=== PATIENT | female | born 2000 | race Caucasian/White ===

== ENCOUNTER 2019-09-25 03:27 | Emergency (ER) | payer BC ==
[2019-09-25 04:46] LABS: #Monocytes 0.4 thou/uL (0.11-0.59); #Neutrophils 10.1 thou/uL (1.40-6.50); %Basophils 0.1 % (0.0-1.0); %Eosinophils 0.1 % (0.0-10.0); %Lymphocytes 8.8 % (21.0-51.0); %Monocytes 3.7 % (0.0-10.0); %Neutrophils 87.3 % (42.0-75.0); Hemoglobin 14.3 g/dL (12.0-16.0); Mean Corpuscular HGB CONC 32.7 g/dL (32.0-36.0); Mean Corpuscular Hemoglobin 27.4 pg (27.0-31.0); Mean Corpuscular Volume 83.8 fL (78.0-98.0); Mean Platelet Volume 6.8 fL (7.4-10.4); Platelet Count 277 thou/uL (130-400); RBC Distribution Width 12.7 % (11.5-14.5); Red Blood Cell (RBC) Count 5.23 mill/uL (4.20-5.40); White Blood Cell (WBC) Count 11.5 thou/uL (4.8-10.8)
[2019-09-25 05:07] LABS: ALT (SGPT) 22 U/L (8-55); AST (SGOT) 11 U/L (5-34); Albumin 4.4 g/dL (3.5-5.0); Alkaline Phosphatase 94 U/L (40-110); Anion Gap 14 mmol/L (10-20); BUN (Urea Nitrogen) 11 mg/dL (7.0-18.7); Bilirubin, Total 0.3 mg/dL (0.2-1.2); Calc. Creatinine Clearance 0 mL/min (70-130); Calcium 10.1 mg/dL (7.8-10.44); Carbon Dioxide 26 mmol/L (22-29); Chloride 99 mmol/L (98-107); Estimated GFR-MDRD Greater than 90; Glucose 204 mg/dL (70-105); Protein, Total 8.4 g/dL (6.0-8.3); Sodium 135 mmol/L (136-145)
[2019-09-25 05:33] LABS: BHCG - Serum Negative (NEGATIVE); Pregs Control Background? CLEAR/WHITE (CLR/WHITE); Pregs Control Bar Appear? YES (CONTROL BAR)
--- NOTE | 2019-10-08 16:42 | EKG ---
Test Reason : HYPERTENSION Blood Pressure : / mmHG Vent. Rate : 086 BPM Atrial Rate : 086 BPM P-R Int : 132 ms QRS Dur : 086 ms QT Int : 352 ms P-R-T Axes : 040 034 003 degrees QTc Int : 421 ms Normal sinus rhythm Normal ECG Confirmed by SARA CLARK DO ([id number]), editorial writer ADONAY HULL ([id number]) on 10/08/2019 4:41:33 PM Referred By: Confirmed By:SARA CLARK DO
== END 2019-09-25 05:44 | disposition home or self-care (01) ==
LOC: ERS 03:27
DX: I10 Essential (primary) hypertension (principal); E78.5 Hyperlipidemia, unspecified; J45.909 Unspecified asthma, uncomplicated; Z79.899 Other long term (current) drug therapy
CPT/HCPCS: 36415; 80053; 84484; 84703; 85025; 85379; 93005

== ENCOUNTER 2022-07-26 18:45 | Emergency (ER) | payer BC ==
[2022-07-26] MEDS ORDERED: Amoxicillin/Potassium Clav 875 MG TAB ONE (19:56)
[2022-07-26] MEDS ORDERED: Acetaminophen 500 MG TAB ONE (19:56)
== END 2022-07-26 20:19 | disposition home or self-care (01) ==
LOC: ERS 18:45
DX: S51.851A Open bite of right forearm, initial encounter (principal); S81.851A Open bite, right lower leg, initial encounter; E78.5 Hyperlipidemia, unspecified; I10 Essential (primary) hypertension; J45.909 Unspecified asthma, uncomplicated; W55.01XA Bitten by cat, initial encounter
CPT/HCPCS: 99283

== ENCOUNTER 2023-01-05 19:09 | Emergency (ER) | payer BC ==
[~2023-01-05 19:09] MED LIST: Iopamidol-370 76% 500 ML MDV (1 ML CHARGE) ONE
[2023-01-05] MEDS ORDERED: Ondansetron PF 4 MG/2 ML Vial ONE (20:01)
[2023-01-05] MEDS ORDERED: Morphine 4 MG/ML VIAL ONE (20:01)
[2023-01-05 20:29] LABS: #Basophils 0.1 thou/uL (0.0-0.2); #Eosinphils 0.1 thou/uL (0.0-0.7); #Monocytes 0.7 thou/uL (0.11-0.59); #Neutrophils 10.9 thou/uL (1.40-6.50); %Basophils 0.4 % (0.0-1.0); %Eosinophils 0.7 % (0.0-10.0); %Lymphocytes 6.7 % (21.0-51.0); %Monocytes 5.6 % (0.0-10.0); %Neutrophils 86.2 % (42.0-75.0); Hematocrit 37.2 % (36.0-47.0); Hemoglobin 12.3 g/dL (12.0-16.0); Mean Corpuscular HGB CONC 33.1 g/dL (32.0-36.0); Mean Corpuscular Hemoglobin 26.6 pg (27.0-31.0); Mean Corpuscular Volume 80.5 fl (78.0-98.0); Platelet Count 307 10x3/uL (130-400); RBC Distribution Width 14.8 % (11.5-14.5); Red Blood Cell (RBC) Count 4.62 mill/uL (4.20-5.40); White Blood Cell (WBC) Count 12.6 10x3/uL (4.8-10.8)
[2023-01-05 20:37] LABS: Bacteria/HPF None Seen HPF (None Seen); Bilirubin Negative (Negative); Blood, Urine Negative (Negative); CAUTI Indications for Culture Dysuria,urgency,freq; Calcium Oxalate Crystals 1+ HPF (None Seen); Clarity Clear (Clear); Glucose, Urine (Dipstick) Normal (Negative); Ketone, Urine 40 mg/dL (Negative); Leukocyte 25 Leu/uL (Negative); Nitrite Negative (Negative); Protein, Urine (Dipstick) 100 mg/dL (Neg-Trace); RBC/HPF 0-3 HPF (0-3); Specific Gravity, Urine 1.042 (1.002-1.036); Squamous Epithelial 0-3 HPF (0-3)
[2023-01-05 20:38] LABS: BHCG - Serum Negative (NEGATIVE); Pregs Control Background? CLEAR/WHITE (CLR/WHITE); Pregs Control Bar Appear? YES (CONTROL BAR)
[2023-01-05 20:39] LABS: Urine Culture Reflex No No
[2023-01-05 20:49] LABS: ALT (SGPT) 12 U/L (8-55); AST (SGOT) 12 U/L (5-34); Albumin 4.1 g/dL (3.5-5.0); Alkaline Phosphatase 80 U/L (40-110); Anion Gap 15 mmol/L (10-20); BUN (Urea Nitrogen) 10 mg/dL (7.0-18.7); Bilirubin, Total 0.4 mg/dL (0.2-1.2); Calc. Creatinine Clearance 0 mL/min (70-130); Calcium 9.5 mg/dL (7.8-10.44); Carbon Dioxide 24 mmol/L (22-29); Chloride 100 mmol/L (98-107); Estimated GFR 109; Globulin 4.4 g/dL (2.4-3.5); Glucose 120 mg/dL (70-105); Potassium 3.9 mmol/L (3.5-5.1); Protein, Total 8.5 g/dL (6.0-8.3); Sodium 135 mmol/L (136-145)
[2023-01-05] MEDS ORDERED: Cefepime 2 GM VIAL ONE (20:54)
[2023-01-05] MEDS ORDERED: Vancomycin 1 GM/200 ML (FROZEN) BAG ONE (21:40)
== END 2023-01-05 23:24 | disposition short-term general hospital (02) ==
LOC: ERS 19:09
DX: N76.4 Abscess of vulva (principal); I10 Essential (primary) hypertension; Z79.899 Other long term (current) drug therapy
CPT/HCPCS: 36415; 74177; 80053; 81001; 83605; 84703; 85025; 87040; 96365; 96366; 96367; 96375; J0692; J2270; J2405; J3370-JW; Q9967

== ENCOUNTER 2023-11-14 08:42 | Outpatient (CLI) | payer BC ==
[2023-11-14 10:22] LABS: #Basophils 0.05 10x3/uL (0.0-0.2); #Monocytes 0.73 10x3/uL (0.0-1.1); #Neutrophils 6.37 10x3/uL (1.5-8.4); %Basophils 0.6 % (0.0-2.0); %Eosinophils 2.2 % (0.0-6.0); %Lymphocytes 17.4 % (18.0-47.0); %Monocytes 8.2 % (0.0-10.0); %Neutrophils 71.2 % (40.0-75.0); Hematocrit 38.3 % (34.9-44.5); Hemoglobin 12.9 g/dL (12.0-15.5); Mean Corpuscular HGB CONC 33.7 g/dL (32.0-36.0); Mean Corpuscular Hemoglobin 26.3 pg (27.0-33.0); Mean Platelet Volume 8.9 fL (7.4-10.4); Platelet Count 253 10x3/uL (150-450); RBC Distribution Width 13.4 % (11.5-14.5); Red Blood Cell (RBC) Count 4.91 10x6/uL (3.90-5.03)
[2023-11-14 10:42] LABS: BHCG - Serum Negative (NEGATIVE); Pregs Control Background? CLEAR/WHITE (CLR/WHITE); Pregs Control Bar Appear? YES (CONTROL BAR)
[2023-11-14 10:52] LABS: ALT (SGPT) 39 U/L (8-55); AST (SGOT) 25 U/L (5-34); Albumin 3.7 g/dL (3.5-5.0); Alkaline Phosphatase 75 U/L (40-110); Anion Gap 16 mmol/L (10-20); BUN (Urea Nitrogen) 11 mg/dL (7.0-18.7); Bilirubin, Total 0.4 mg/dL (0.2-1.2); Calc. Creatinine Clearance 0 mL/min (70-130); Calcium 9.5 mg/dL (7.8-10.44); Carbon Dioxide 25 mmol/L (22-29); Chloride 102 mmol/L (98-107); Estimated GFR 124; Globulin 3.6 g/dL (2.4-3.5); Glucose 104 mg/dL (70-105); Potassium 3.9 mmol/L (3.5-5.1); Protein, Total 7.3 g/dL (6.0-8.3); Sodium 139 mmol/L (136-145)
== END 2023-11-14 08:43 | disposition home or self-care (01) ==
LOC: LABBT 08:42
PROVIDERS: ATTEND Surgery
DX: Z01.818 Encounter for other preprocedural examination (principal); E66.01 Morbid (severe) obesity due to excess calories
CPT/HCPCS: 80053; 84703; 85025; 93005; 93010

== ENCOUNTER 2023-11-14 09:00 | Inpatient (IN) | payer BC ==
[2023-11-14 09:22] VITALS: BMI 55.0
[2023-11-19] MEDS ORDERED: fentaNYL 50 mcg/mL 1 mL Vial ONE (06:26)
[2023-11-19] MEDS ORDERED: Bupivacaine 0.25% HCL 30 ML VIAL ONE (06:27)
[2023-11-19] MEDS ORDERED: Midazolam HCl 2 mg/2 ml Vial ONE (06:27)
[2023-11-19] MEDS ORDERED: EPINEPHrine 1 MG/ML VIAL ONE (06:43)
[2023-11-19] MEDS ORDERED: PROPOFOL 20 ML ONE ×2 (07:01→07:03)
[2023-11-19] MEDS ORDERED: fentaNYL PF 100 MCG/2 ML SYRINGE ONE (07:01)
[2023-11-19] MEDS ORDERED: Rocuronium Bromide 10 MG/ML (10ML VIAL) ONE (07:02)
[2023-11-19] MEDS ORDERED: Lidocaine 1% PF 5 ML VIAL ONE (07:02)
[2023-11-19] MEDS ORDERED: Sodium Chloride 0.9% 100 ML ONE ×2 (07:14→08:20)
[2023-11-19] MEDS ORDERED: CEFAZOLIN 2 GM VIAL ONE (07:14)
[2023-11-19] MEDS ORDERED: Heparin 5,000 UNITS/ML VIAL ONE (07:14)
[2023-11-19] MEDS ORDERED: Lidocaine 4% PF 5 ML AMP ONE (07:25)
[2023-11-19] MEDS ORDERED: PROPOFOL 40 ML ONE (07:25)
[2023-11-19] MEDS ORDERED: SUGAMMADEX SODIUM 200 MG/2 ML VIAL ONE (07:39)
[2023-11-19] MEDS ORDERED: Dexamethasone 20 MG/5 ML VIAL ONE (07:47)
[2023-11-19] MEDS ORDERED: ePHEDrine Sulfate 50 MG/10 ML VIAL ONE (07:53)
[2023-11-19] MEDS ORDERED: Albuterol HFA (OR) 200 PUFF INH ONE (07:59)
[2023-11-19] MEDS ORDERED: Ondansetron PF 4 MG/2 ML Vial ONE (08:17)
[2023-11-19] MEDS ORDERED: Ketorolac Tromethamine 30 MG (1 mL) VIAL ONE (08:17)
[2023-11-19] MEDS ORDERED: Dexmedetomidine 200 MCG/2 ML VIAL ONE (08:20)
[2023-11-19] MEDS ORDERED: Fentanyl 250 MCG/5 ML VIAL ONE (09:10)
[2023-11-19] MEDS ORDERED: Non-Formulary Item 1 EACH (Albuterol Sulfate [Proair Digihaler] 90 MCG Aer.Pw.Bas) INH PRN (10:12)
[2023-11-19] MEDS ORDERED: Hydrocodone-Acetamin 15 ML UDCUP PO PRN (10:12)
[2023-11-19] MEDS ORDERED: Dextrose 50% Abboject 50 ML SYRINGE SLOW IVP PRN (10:12)
[2023-11-19] MEDS ORDERED: hydrALAZINE 20 MG/ML VIAL SLOW IVP PRN (10:12)
[2023-11-19] MEDS ORDERED: Ipratropium/Albuterol 3 ML NEB NEB PRN (10:12)
[2023-11-19] MEDS ORDERED: Promethazine HCl 25 MG/ML VIAL IM PRN (10:12)
[2023-11-19] MEDS ORDERED: Dextrose 5% in Water 1,000 ML IV PRN (10:12)
[2023-11-19] MEDS ORDERED: Glucagon 1 MG/ML KIT IM PRN (10:12)
[2023-11-19] MEDS ORDERED: Ketorolac Tromethamine 30 MG (1 mL) VIAL IVP PRN (10:12)
[2023-11-19] MEDS ORDERED: diphenhydrAMINE 50 MG/ML VIAL IVP PRN (10:12)
[2023-11-19] MEDS ORDERED: Albuterol 200 PUFF (6.7GM INHALER) INH PRN (10:39)
[2023-11-19] MEDS ORDERED: HYDROmorphone 2 MG/ML VIAL ONE (10:53)
[2023-11-19] MEDS ORDERED: Promethazine HCl 25 MG/ML VIAL ONE (10:56)
[2023-11-19] MEDS: Pantoprazole 40 MG VIAL IVP SCH (13:39)
[2023-11-19] MEDS: Montelukast Sodium 10 mg Tablet PO SCH (13:39)
[2023-11-19] MEDS: Lisinopril 20 MG TAB PO SCH (13:39)
[2023-11-19] MEDS: Acetaminophen 650 MG/20.3 ML UDCUP PO SCH (13:39)
[2023-11-19] MEDS: Enoxaparin 40 MG (0.4 mL) SYRINGE SC SCH (13:40)
[2023-11-19] MEDS: hydrOXYzine 25 MG TAB PO SCH (13:40)
[2023-11-19] MEDS: D5 1/2 NS w/20 mEq KCL 1,000 ML IV SCH (14:48)
[2023-11-19] MEDS: oxyCODONE 5 MG TAB PO PRN (17:29)
[2023-11-20] MEDS: Ondansetron PF 4 MG/2 ML Vial IVP PRN (02:52)
[2023-11-20 11:56] LABS: #Basophils Less than 0.03 10x3/uL (0.0-0.2); #Eosinphils Less than 0.03 10x3/uL (0.0-0.7); %Basophils 0.1 % (0.0-1.0); %Eosinophils 0.1 % (0.0-10.0); %Monocytes 9.3 % (0.0-10.0); Hematocrit 36.7 % (36.0-47.0); Hemoglobin 12.1 g/dL (12.0-16.0); Mean Corpuscular Hemoglobin 25.9 pg (27.0-31.0); Mean Corpuscular Volume 78.6 fL (78.0-98.0); Mean Platelet Volume 8.7 fL (7.4-10.4); Platelet Count 227 10x3/uL (130-400); RBC Distribution Width 13.8 % (11.5-14.5); Red Blood Cell (RBC) Count 4.67 mill/uL (4.20-5.40)
[2023-11-20 15:51] LABS: Anion Gap 18 mmol/L (10-20); BUN (Urea Nitrogen) 8 mg/dL (7.0-18.7); Calc. Creatinine Clearance 244 mL/min (70-130); Calcium 8.8 mg/dL (7.8-10.44); Carbon Dioxide 22 mmol/L (22-29); Chloride 105 mmol/L (98-107); Estimated GFR 121; Glucose 105 mg/dL (70-105); Potassium 3.6 mmol/L (3.5-5.1); Sodium 141 mmol/L (136-145)
[2023-11-21 07:55] VITALS: BP 104/74; TEMP 98.5
== END 2023-11-21 11:05 | disposition home or self-care (01) | DRG 621 ==
LOC: SURG A 11-19 06:17
PROVIDERS: ADMIT Surgery; ATTEND Surgery
PROC: 0DB64Z3 Excision of Stomach, Percutaneous Endoscopic Approach, Vertical (ICD-10-PCS; principal; 2023-11-19)
PROC: 8E0W4CZ Robotic Assisted Procedure of Trunk Region, Percutaneous Endoscopic Approach (ICD-10-PCS; 2023-11-19)
DX: E66.01 Morbid (severe) obesity due to excess calories (principal); Z68.43 Body mass index [BMI] 50.0-59.9, adult; I10 Essential (primary) hypertension; Z87.891 Personal history of nicotine dependence; F41.9 Anxiety disorder, unspecified
CPT/HCPCS: 36415; 36416; 80048; 85025; 88307; 88342; C9113; J0171; J0665; J1100; J1170; J1644; J1650; J1885; J2250; J2405; J2550; J2704; J3010; J3480; J3490